=== PATIENT | female | born 1985 | race Caucasian/White ===

== ENCOUNTER 2020-01-22 05:40 | Inpatient (IN) | payer MEDICARE, MEDICAID, SELFPAY ==
[2020-01-22] VITALS (54 sets, daily range): BP systolic 98–132; BP diastolic 44–94; PULSE 50–147; RESP 14–18; TEMP 36.1–37.4; O2SAT 95–100; BMI 46.7
[2020-01-22] MEDS: LACTATED RINGERS 1,000 ML 999 ML IV CONT (06:45)
--- NOTE | 2020-01-22 06:52 | LDADM ---
This patient, Tata Sanchez, was admitted to Labor/Delivery/Recovery 120 on 01/22/20 at 05:40. Plans for labor, pain management and were discussed with patient. Patient/family oriented to hospital policies and general routines including ID bracelet, bed and alarms, visiting hours, pain management, procedures, bathroom and other care routines, personal items, smoking policy, room service/diet and guest tray routines, security routines, and visiting hours. Patient/Family are encouraged to report perceived risks to care and to ask questions if they do not understand what they are told or what they should do. See OBIX for further documentation.
[2020-01-22 07:01] LABS: Basophils Percent Auto 0.3 % (0.2-1.2); Eosinophils Absolute Auto 0.2 K/mm3 (0-0.3); Eosinophils Percent Auto 1.5 % (0-4.4); Hematocrit 34.6 % (37.0-47.0); Hemoglobin 11.7 g/dL (12.0-15.0); Immature Granulocyte Absolute 0.14 K/mm3 (0.00-0.031); Immature Granulocyte Percent A 1.2 % (0-0.5); Lymphocytes Absolute Auto 2.33 K/mm3 (0.9-3.2); Lymphocytes Percent Auto 20.5 % (18.3-44.2); Mean Corpuscular HGB Conc 33.8 g/dl (32-36); Mean Corpuscular Hemoglobin 33.2 pg (26-34); Mean Corpuscular Volume 98.3 fl (80-100); Mean Platelet Volume 12.4 fl (7.4-10.4); Monocytes Absolute Auto 0.8 K/mm3 (0.1-0.6); Neutrophils Absolute Auto 7.9 K/mm3 (1.3-6.7); Neutrophils Percent Auto 69.5 % (45.5-73.1); Platelet Count Result 163 k/mm3 (150-375); Red Blood Count 3.52 M/mm3 (4.2-5.4); Red Cell Distribution Width 13.4 % (11.5-14.5); White Blood Count 11.4 K/mm3 (4.5-10.0)
--- NOTE | 2020-01-22 07:14 | WPDANESEPPF ---
Anes - Initial Pre Proc Eval Date/Time: 01/22/20 07:14 Surgeon: Pietro Mar MD Pre Op Diagnosis: Patient Data Age: 34 Gender: F Height: 1.57 m Weight: 116 kg Last Vital Signs Pulse 82 01/22/20 06:10 BP 132/74 01/22/20 06:10 Pulse Ox 98 01/22/20 06:24 Allergies Allergy/AdvReac Type Severity Reaction Status Date / Time No Known Allergies Allergy Unverified 03/26/17 14:59 Laboratory Tests 01/22/20 01/22/20 06:46 06:46 WBC 11.4 K/mm3 H K/mm3 (4.5-10.0) RBC 3.52 M/mm3 L M/mm3 (4.2-5.4) Hgb 11.7 g/dL L g/dL (12.0-15.0) Hct 34.6 % L % (37.0-47.0) MCV 98.3 fl fl (80-100) MCH 33.2 pg pg (26-34) MCHC 33.8 g/dl g/dl (32-36) RDW 13.4 % % (11.5-14.5) Plt Count 163 k/mm3 k/mm3 (150-375) MPV 12.4 fl H fl (7.4-10.4) Immature Gran % (Auto) 1.2 % H % (0-0.5) Neut % (Auto) 69.5 % % (45.5-73.1) Lymph % (Auto) 20.5 % % (18.3-44.2) [place] % (Auto) 7.0 % % (2.6-8.5) Eos % (Auto) 1.5 % % (0-4.4) Baso % (Auto) 0.3 % % (0.2-1.2) Lymph # (Auto) 2.33 K/mm3 K/mm3 (0.9-3.2) [place] # (Auto) 0.8 K/mm3 H K/mm3 (0.1-0.6) Eos # (Auto) 0.2 K/mm3 K/mm3 (0-0.3) Baso # (Auto) 0.0 K/mm3 K/mm3 (0.0-0.1) Abs Immat Gran (auto) 0.14 K/mm3 H K/mm3 (0.00-0.031) Absolute Neuts (auto) 7.9 K/mm3 H K/mm3 (1.3-6.7) Absolute Nucleated RBC 0.0 K/mm3 K/mm3 (0.0-0.012) Nucleated RBC % 0.0 % % (0.0-0.2) RPR Pending Patient hx anesthesia problems: none Family hx anesthesia problems: none [facility] Past Medical History Medical History (Updated 01/22/20 @ 07:15 by Axel Chicas MD) Morbid obesity with BMI of 40.0-44.9, adult Social History Social History Substance use: unknown Gender identity (if verbalized by the patient): Female Spiritual care concerns: No Anes - Eval Final PreProcedure Day of Procedure 01/22/20 07:14 Patient weight: morbidly obese Heart: regular rate and rhythm Lungs: clear to auscultation and normal air movement Airway: Mallampati scale class II Neurological: alert and oriented Last oral intake: >/= 8 hours ASA classification: III Emergent: no Anesthetic plan: proceed Anesthesia type and monitoring: regional spinal Informed Consent: The patient's anesthetic plan and its attendant risks and benefits were discussed with the patient/family/POA. Questions were solicited and answers provided to the satisfaction of the patient/family/POA.
--- NOTE | 2020-01-22 07:22 | PM.IMHP ---
H&P: HPI History of Present Illness Chief complaint: Narrative: Tata Sanchez is a 34 year old female 003 presents for repeat delivery and tubal ligation. care has been with Dr. Dent but due to [facility] being closed she presents for delivery here at [place]. records are on the chart and Uncomplicated and no issues. Review of Systems Review of Systems: All systems reviewed & are unremarkable except as noted in HPI and below PMFSH Past Medical History Medical History (Updated 01/22/20 @ 07:24 by Pietro Mar MD) Morbid obesity with BMI of 40.0-44.9, adult Social History Social History Smoking packs per day: 0.5 Smoking cigarettes per day: 10.0 Years smoked: 10 Smoking pack-years: 5.00 Smoking status: Current every day smoker Tobacco type: cigarettes Second hand tobacco smoke exposure: Yes Substance use: unknown Gender identity (if verbalized by the patient): Female Spiritual care concerns: No Meds Home Medications and Allergies Allergies Allergy/AdvReac Type Severity Reaction Status Date / Time No Known Allergies Allergy Unverified 03/26/17 14:59 Vital Signs Vital Signs - 24 hr 01/22/20 06:10 01/22/20 06:14 01/22/20 06:19 Pulse Rate 82 Blood Pressure 132/74 Pulse Oximetry 97 97 01/22/20 06:24 Pulse Rate Blood Pressure Pulse Oximetry 98 Exam Const: General: no acute distress Resp: Auscultation: clear to auscultation bilaterally Cardio: Rate: regular rate Rhythm: regular rhythm GI: Other: FH 40cm/FHT 140 H&P: Results Labs Labs: Short CBC 01/22/20 Range/Units 06:46 WBC 11.4 H (4.5-10.0) K/mm3 Hgb 11.7 L (12.0-15.0) g/dL Hct 34.6 L (37.0-47.0) % Plt Count 163 (150-375) k/mm3 Assessment and Plan Assessment and plan (1) Term : Code(s): Z34.90 - Encounter for supervision of normal , unspecified, unspecified trimester Status: Acute (2) Encounter for female sterilization procedure: Code(s): Z30.2 - Encounter for sterilization Status: Acute Additional Plan Proceed with repeat as well as bilateral tubal ligation.
--- NOTE | 2020-01-22 08:40 | PM.OBPRVD ---
OB - Delivery Note Procedure Procedure: Procedures Operation Date: 01/22/20 07:30 Actual Procedures Side Surgeon p Section with tubal ligation Bilateral Pietro Mar MD Route of delivery: (with BTL) Specimen: Yes Estimated blood loss (mL): 600 Anesthesia type: Spinal Disposition: PACU Narrative: Patient prepped and draped in the usual sterile manner for this procedure. Pfannenstiel incision was made in was then carried down into the subcutaneous tissue. Fascia was identified and extended bilaterally the length of the skin incision. Hernia sac was noted at this time. Peritoneum was entered bladder flap was developed and uterus scored with clear fluid noted. Vertex was delivered without difficulty section naso-oropharynx the rest phase liver cord clamped cut baby was passed off to the pediatric nurse in attendance. Placenta was manually removed cleared of membranes and clots and the uterine incision was approximated using 0 Monocryl in a running interlocking manner with good approximation hemostasis noted. Bilaterally tubes were grasped with Cameron clamps and not of tissue was removed without difficulty. The left tube was bleeding minimally and [id number] chromic suture rendered this hemostatic. Uterus returned to the abdomen and the tubes were noted be hemostatic and intact. All subfascial tissue was hemostatic and the fascia was approximated using a 0 Vicryl from the left angle to the midline and the right angle to midline. Subcutaneous tissue was approximated and skin was approximated using wide anupama. Patient sent to recovery room stable condition. [place] Baby Weeks of gestation at delivery: 39 Infant gender: Female Weight (pounds): 7 Weight (ounces): 8 presentation: vertex score one minute: 9 score five minutes: 9
[2020-01-22 09:42] LABS: Rapid Plasma Reagin Non-Reactive (NonReactive)
[2020-01-22] MEDS: KETOROLAC 30 MG/ML VIAL (*BKC) IV PUSH (12:05)
[2020-01-22] MEDS: DEXTROSE 5%/0.45% SOD CHL 1,000 ML 125 ML IV CONT (13:58)
[2020-01-22] MEDS: DOCUSATE SODIUM 100 MG CAPSULE PO (16:16)
--- NOTE | 2020-01-22 17:29 | PC.NURSE ---
This patient, Tata Sanchez, was received from Labor&Delivery on 01/22/20 at 1114. Personal belongings list checked and signed. Patient/family oriented to unit policies and routines
[2020-01-22] MEDS: IBUPROFEN 600 MG TABLET PO (20:12)
[2020-01-22] MEDS: SIMETHICONE 80 MG TAB.CHEW PO (20:12)
[2020-01-22] MEDS: ZOLPIDEM TARTRATE 5 MG TABLET PO (21:50)
[2020-01-23] MEDS: IBUPROFEN 600 MG TABLET PO ×4 (02:38→22:57)
[2020-01-23 05:49] VITALS: BP 139/84; PULSE 95; RESP 18; TEMP 36.9; O2SAT 99
[2020-01-23 06:08] LABS: Basophils Percent Auto 0.1 % (0.2-1.2); Eosinophils Absolute Auto 0.1 K/mm3 (0-0.3); Eosinophils Percent Auto 0.8 % (0-4.4); Hematocrit 31.3 % (37.0-47.0); Hemoglobin 10.5 g/dL (12.0-15.0); Immature Granulocyte Absolute 0.12 K/mm3 (0.00-0.031); Immature Granulocyte Percent A 0.8 % (0-0.5); Lymphocytes Absolute Auto 1.49 K/mm3 (0.9-3.2); Lymphocytes Percent Auto 10.5 % (18.3-44.2); Mean Corpuscular HGB Conc 33.5 g/dl (32-36); Mean Corpuscular Hemoglobin 32.9 pg (26-34); Mean Corpuscular Volume 98.1 fl (80-100); Monocytes Percent Auto 7.3 % (2.6-8.5); Neutrophils Absolute Auto 11.4 K/mm3 (1.3-6.7); Neutrophils Percent Auto 80.5 % (45.5-73.1); Platelet Count Result 144 k/mm3 (150-375); Red Blood Count 3.19 M/mm3 (4.2-5.4); Red Cell Distribution Width 13.2 % (11.5-14.5); White Blood Count 14.2 K/mm3 (4.5-10.0)
--- NOTE | 2020-01-23 06:30 | PC.NURSE ---
PT introductions made and plan of care discussed per post op c section, pain management, bottle feeding, daily care activities. PT verbalized understanding of such care.
--- NOTE | 2020-01-23 06:59 | WPDANLDNPN2 ---
Anes-Prog Note L&D-Neuraxial Date/Time: 01/23/20 06:59 Neuraxial medications: intrathecal PF morphine Opiod-related complaints: none Patient feedback: Patient satisfied with post-operative pain management.
--- NOTE | 2020-01-23 07:00 | WPDANLDPN2 ---
Anes-Prog Note L&D Date/Time: 01/23/20 07:00 Comfortable throughout: section Neuraxial method: spinal Epidural/Spinal procedure site: clean & non-tender Neuro status: Neuro function grossly intact. Cardiovascular status: normal Respiratory status: normal Airway patency: baseline Mental status: baseline Post-Op hydration status: normal Vital Signs: Last Vital Signs Temp 36.9 C 01/23/20 05:49 Pulse 95 01/23/20 05:49 Resp 18 01/23/20 05:49 BP 139/84 01/23/20 05:49 Pulse Ox 99 01/23/20 05:49 I/O: Intake & Output 01/22/20 01/22/20 01/23/20 15:59 23:59 07:59 Intake Total 240 1800 800 Output Total 375 1600 1500 Balance -135 200 -700 Post-procedural complaints: none Patient feedback: Patient satisfied with anesthetic care.
[2020-01-23] MEDS: DOCUSATE SODIUM 100 MG CAPSULE PO ×2 (08:54→16:54)
[2020-01-23] MEDS: SIMETHICONE 80 MG TAB.CHEW PO ×2 (08:54→16:54)
[2020-01-23 09:00] VITALS: BP 114/69; PULSE 76; RESP 18; TEMP 36.8; O2SAT 100
--- NOTE | 2020-01-23 09:35 | PM.OBPNVD ---
OB - PN: Subj Subjective Date/time seen: 01/23/20 09:35 Interval history: 34yo s/p repeat section and BTL on 01/21. Patient comments: no complaints and pain well controlled [place] baby status: doing well feeding status: exclusively bottle feeding Narrative: Doing well, pain is controlled. Itching, but benadryl is helping with that. Tolerating diet without nausea/vomiting. Voiding freely. Passing flatus. Denies fevers, chills, chest pain, SOB, lightheadedness. OB - PN: Obj Data Labs CBC & Chem 7: 01/23/20 05:31 Labs: Laboratory Results - last 24 hr 01/22/20 01/23/20 06:46 05:31 WBC 14.2 H RBC 3.19 L Hgb 10.5 L Hct 31.3 L MCV 98.1 MCH 32.9 MCHC 33.5 RDW 13.2 Plt Count 144 L MPV 12.0 H Immature Gran % (Auto) 0.8 H Neut % (Auto) 80.5 H Lymph % (Auto) 10.5 L [place] % (Auto) 7.3 Eos % (Auto) 0.8 Baso % (Auto) 0.1 L Lymph # (Auto) 1.49 [place] # (Auto) 1.0 H Eos # (Auto) 0.1 Baso # (Auto) 0.0 Abs Immat Gran (auto) 0.12 H Absolute Neuts (auto) 11.4 H Absolute Nucleated RBC 0.0 Nucleated RBC % 0.0 RPR Non-reactive OB - PN A/P Time Spent With Patient Time: Total time spent is greater than 50% in coordination of care (as documented) at patient's floor/unit and/or counseling patient: Review of Systems Review of Systems: All systems reviewed & are unremarkable except as noted in HPI and below Exam Const: General: comfortable, no acute distress, alert and awake; No acute distress Orientation/consciousness: patient oriented x3 Resp: Effort & Inspection: normal respiratory effort Auscultation: clear to auscultation bilaterally, no crackles, no rales, no rhonchi and no wheezes Cardio: Rate: regular rate GI: Other: soft, nontender, nondistended. Dressing in place. Psych: Appearance: grossly normal Mental Status: mental status grossly normal Affect: normal affect Attitude: cooperative Judgement: Good judgement present (Psych)
--- NOTE | 2020-01-23 10:00 | PC.NURSE ---
PT requests permission to go outside for fresh air . PT offered nicotine patch and refused. PT instructed on no smoking policy and also [place] virus policy regarding going outside. PT verbalized understanding of such instructions.
[2020-01-23 20:00] VITALS: BP 116/78; PULSE 89; RESP 16; TEMP 36.1; O2SAT 100
--- NOTE | 2020-01-23 22:21 | PC.NURSE ---
Patient viewed the discharge video Mother & Baby Care, The First Two Weeks . Patient was given the opportunity and encouraged to ask questions. Patient verbalized understanding of information shared and has been given the mother/baby guide for home reference.
[2020-01-23] MEDS: ZOLPIDEM TARTRATE 5 MG TABLET PO (22:57)
[2020-01-24] MEDS: DOCUSATE SODIUM 100 MG CAPSULE PO (06:55)
[2020-01-24] MEDS: SIMETHICONE 80 MG TAB.CHEW PO (06:55)
--- NOTE | 2020-01-24 06:55 | PC.NURSE ---
PT introductions made and plan of care discussed per post op c section, pain management, bottle feeding, daily care activities and pending discharge to home. PT instructed on no smoking policy and [place] virus restrictions. PT verbalized understanding of such care.
[2020-01-24] MEDS: IBUPROFEN 600 MG TABLET PO (06:56)
[2020-01-24 07:55] VITALS: BP 137/68; PULSE 85; RESP 18; TEMP 36.6; O2SAT 99
--- NOTE | 2020-01-24 09:36 | P.DS_ITS ---
DS: Diagnosis Admitting Diagnosis Admitting Diagnosis: Encounter for supervision of normal , unspecified, unspecified trimester Discharge Diagnosis (1) S/P section: Code(s): Z98.891 - History of uterine scar from previous surgery Status: Acute Assessment and Plan: Meeting postop milestones Desires to go home today Ok for DC home today (2) Encounter for female sterilization procedure: Code(s): Z30.2 - Encounter for sterilization Status: Acute (3) Morbid obesity with BMI of 40.0-44.9, adult: Code(s): E66.01 - Morbid (severe) obesity due to excess calories; Z68.41 - Body mass index (BMI) 40.0-44.9, adult Status: Acute OB - DS: Summary Hospital Course Hospital Course: Admitted for scheduled elective repeat section and bilateral tubal ligation. Postop course was uncomplicated and meeting post op milestones. Pain controlled. Ambulating without issues. Passing flatus. Tolerating diet. OB Procedures : None OB Procedures Intrapartum: OB Procedures: : None Peripartum Data Delivery Method: Section Procedures: Procedures Operation Date: 01/22/20 07:30 Actual Procedures Side Surgeon p Section with tubal ligation Bilateral Pietro Mar MD Status at Discharge Functional status at discharge: independent ambulation Overall status at discharge: patient is progressing back to baseline Time Spent with Patient Time attestation: Total time spent providing and/or coordinating discharge services: Exam Const: General: comfortable, no acute distress, alert and awake; No acute distress Orientation/consciousness: patient oriented x3 Resp: Effort & Inspection: normal respiratory effort Auscultation: clear to auscultation bilaterally, no crackles, no rales, no rhonchi and no wheezes Cardio: Rate: regular rate Rhythm: regular rhythm GI: Other: soft, nontender, nondistended. Incision C/D/I. [place] in place. Neuro: General: patient oriented x3 Psych: Appearance: grossly normal Mental Status: mental status grossly normal Affect: normal affect Attitude: cooperative Judgement: Good judgement present (Psych) DS: Data Data Completed and Pending Pending studies at discharge: Pending at discharge 01/22/20 08:14 Surgical [PTH] Routine Surgical [PTH] Routine Discharge Plan Discharge Attending physician on discharge: Pietro Mar Discharging Clinician: William Sanders Patient Disposition: Hospice - Home Activity: as tolerated Diet: regular Stand Alone Forms: General Discharge Information Follow-up/Referrals: Pietro Mar MD [Physician] - Discharge Medications: New hydrocodone-acetaminophen 5-325 mg Tablet 1 tab PO Q3H PRN (Reason: Moderate Pain (4-6)) Qty: 20 RF: 0 docusate sodium 100 mg Capsule 100 mg PO BID Qty: 60 RF: 0 ibuprofen 600 mg Tablet 600 mg PO Q6H PRN (Reason: Cramping) Qty: 90 RF: 0 Date of admission: 01/22/20 05:40 Primary Care Provider: PHYSICIAN,FISHING VESSEL OPERATOR Admitting Provider: Pietro Mar Attending physician on admission: Pietro Mar
--- NOTE | 2020-01-24 11:00 | PC.NURSE ---
PT received discharge instructions per protocol and verbalized understanding of such instructions
--- NOTE | 2020-01-24 11:58 | PC.NURSE ---
PT discharged to home ambulatory accompanied by both and spouse to waiting car. Follow up appts confirmed
== END 2020-01-24 11:58 | disposition home or self-care (01) | DRG 785 ==
LOC: ANHLDR 06:11 → ANHOB2 13:56 → ANHLDR 01-27 08:19 → ANHOB2 01-27 08:19
PROVIDERS: Admitting Provider Obstetrics & Gynecology; Visit Provider Obstetrics & Gynecology
PROC: 10D00Z1 Extraction of Products of Conception, Low, Open Approach (ICD-10-PCS; CPT 59514; principal; 2020-01-22 07:30)
DX: O34.211 Maternal care for low transverse scar from previous cesarean delivery (principal); O99.824 Streptococcus B carrier state complicating childbirth; Z30.2 Encounter for sterilization; Z3A.39 39 weeks gestation of pregnancy; Z37.0 Single live birth; O99.214 Obesity complicating childbirth; E66.01 Morbid (severe) obesity due to excess calories; F17.210 Nicotine dependence, cigarettes, uncomplicated; O99.334 Smoking (tobacco) complicating childbirth
CPT/HCPCS: 36415; 85025; 86592; 86850; 86900; 86901; 88302; A9270; J1200; J1885; J2274; J2590; J3010; J7120

== ENCOUNTER 2020-03-19 20:23 | Emergency (ER) | payer MEDICARE, MEDICAID, SELFPAY ==
--- NOTE | ~2020-03-19 | XR_ITS ---
EXAMINATION: XR shoulder LT min 2V DATE: 03/19/2020 21:10 INDICATION: Analyzed left shoulder pain. TECHNIQUE: AP internally and externally rotated, AP oblique externally rotated and transscapular Y vi ews of the left shoulder were obtained. COMPARISON: None FINDINGS: Mild upper thoracic levoscoliosis. Normal alignment at the left shoulder. No fracture. Glenohumeral joint is normal. Acromioclavicular joint is normal. Soft tissues are unremarkable. IMPRESSION: Mild upper thoracic levoscoliosis. Otherwise unremarkable left shoulder radiographs.. Reviewed, dictated and finalized at location A. IMPRESSION: Mild upper thoracic levoscoliosis. Otherwise unremarkable left shoulder radiogr aphs..
--- NOTE | ~2020-03-19 | CT_ITS ---
EXAMINATION: CT abdomen pelvis w con DATE: 03/19/2020 22:23 INDICATION: Right lower quadrant abdominal pain TECHNIQUE: Computed tomography (CT) of the abdomen and pelvis was performed with 100 cc Omnipaque 350 intravenous contrast. The dose-length product was 1296.68 mGy-cm. Automated exposure control and ite rative reconstruction technique were employed. COMPARISON: None. FINDINGS: Lung bases are unremarkable. No significant pleural or pericardial effusion. Heart size nor mal. No significant vascular abnormality. No lymphadenopathy. There is a far right lateral infraumbilical ventral hernia containing multiple loops of unobstructed small bowel and fluid. There is diastases of the rectus muscles below the umbilicus with bulging of m ultiple loops of small bowel and omental fat. There is stranding deep to the anterior abdominal wall which may represent scarring. No bowel obstruction. There is thickening of the subcutaneous tissues o f the lower anterior abdominal wall with overlying skin thickening, suspicious for cellulitis. There is a 2.3 cm corpus luteal cyst of the left ovary. There degenerative changes of the hips. IMPRESSION: 1. Right lateral infraumbilical ventral hernia containing nonobstructed small bowel and fluid. 2: Stranding of the fat involving the anterior abdominal wall with overlying skin thickening, suspici ous for cellulitis. Correlate clinically. Reviewed, dictated and finalized at location A. IMPRESSION: 1. Right lateral infraumbilical ventral hernia containing nonobstructed small b owel and fluid. 2: Stranding of the fat involving the anterior abdominal wall with overlying sk in thickening, suspicious for cellulitis. Correlate clinically.
[2020-03-19 20:24] VITALS: BP 139/92; PULSE 86; RESP 18; TEMP 36.3; O2SAT 98
--- NOTE | 2020-03-19 21:13 | ED.GENADULT ---
HPI - General Adult General Chief complaint: Unspecified Stated complaint: multiple complaints Time Seen by Provider: 03/19/20 20:41 Source: patient Mode of arrival: ambulatory Limitations: no limitations History of Present Illness HPI narrative: This patient is a 34 year old female who presents for evaluation of right lower abdominal pain. She states she has had a lump to right lower abdomen for 2 months. She was evaluated by her OBGYN 1 month ago and she states he told her if it starts to bother her to get reevaluated. Over the past week , she has had intermittent sharp right lower abdominal pain. She denies nasuea, vomiting, fever, diarrhea or urinary complaints. Patient also is concerned she has having intermittent left shoulder pain with lifting. She denies injury. She has not taken anything for pain. She denies weakness, numbness or tingling. Onset (ago): month(s) Related Data Allergies Allergy/AdvReac Type Severity Reaction Status Date / Time No Known Allergies Allergy Verified 01/22/20 07:43 Review of Systems Review of Systems: All systems reviewed & are unremarkable except as noted in HPI and below Constitutional: Constitutional: Denies chills and Denies fever(s) Gastrointestinal: Gastrointestinal: Reports abdominal pain, Denies constipation, Denies diarrhea, Denies nausea and Denies vomiting Genitourinary: Genitourinary: Denies hematuria, Denies nocturia, Denies dysuria and Denies flank pain Musculoskeletal: Musculoskeletal: Denies back pain and Denies muscle cramps Neurologic: Denies dizziness PMFSH Past Medical History Medical History (Updated 03/20/20 @ 00:00 by Danilo Dabrandy) Morbid obesity with BMI of 40.0-44.9, adult Surgical History Surgical History (Updated 03/19/20 @ 21:17 by Belgica Becerra MD) H/O section Hx of appendectomy Social History Social History Smoking packs per day: 0.5 Smoking cigarettes per day: 10.0 Years smoked: 10 Smoking pack-years: 5.00 Smoking status: Current every day smoker Tobacco type: cigarettes Second hand tobacco smoke exposure: Yes Substance use: unknown Gender identity (if verbalized by the patient): Female Spiritual care concerns: No Exam Narrative: Exam Narrative: GENERAL: Well-appearing, well-nourished, and in no acute distress. obese HEAD: Normocephalic, atraumatic EYES: PERRLA and EOMI, conjunctiva clear without discharge THROAT:Mucous membranes moist, NECK: Supple, without lymphadenopathy or mass RESPIRATORY: No respiratory distress, Airway patent, Respirations non-labored, Clear to auscultation without rales, rhonchi or wheeze HEART: Regular rate and rhythm. No murmur heard. Normal peripheral pulses. ABDOMEN: Soft, right lower, nondistended, normal active bowel sounds. No masses. No rebound or guarding, No organomegaly. no hernia appreciated due to body habitus EXTREMITIES: No edema, normal strength with full range of motion. SKIN: Warm, dry, normal color without rash NEURO: Alert and oriented x3. CN 2-12 grossly intact. No focal deficits. PSYCH: Normal mood and affect. Course Reevaluation(s) Reevaluation #1: I have discussed with patient that she was found to have ventral hernia as cause of her pain. She has not fever, nausea or vomiting. She is stable for discharge. No erythema on abdominal wall to suggest cellulitis. She does have UTI so she will be started on antibiotics. Date: 03/19/20 Time: 23:04 Vital Signs Vital signs: Vital Signs Temperature 97.3 F L 03/19/20 20:24 Pulse Rate 86 03/19/20 20:24 Respiratory Rate 18 03/19/20 20:24 Blood Pressure 139/92 H 03/19/20 20:24 Pulse Oximetry 98 03/19/20 20:24 Temperature 97.3 F L 03/19/20 20:24 Pulse Rate 80 03/19/20 23:20 Respiratory Rate 18 03/19/20 23:20 Blood Pressure 129/70 03/19/20 23:20 Pulse Oximetry 98 03/19/20 23:20 Medical Decision Making Vital Signs Vital Signs: Vital Signs Te
[2020-03-19] MEDS: KETOROLAC 30 MG/ML VIAL (*BKC) IV PUSH (21:17)
[2020-03-19 21:22] LABS: Basophils Percent Auto 0.3 % (0.2-1.2); Eosinophils Absolute Auto 0.2 K/mm3 (0-0.3); Eosinophils Percent Auto 2.2 % (0-4.4); Hematocrit 39.9 % (37.0-47.0); Hemoglobin 13.4 g/dL (12.0-15.0); Immature Granulocyte Absolute 0.02 K/mm3 (0.00-0.031); Immature Granulocyte Percent A 0.2 % (0-0.5); Lymphocytes Absolute Auto 3.03 K/mm3 (0.9-3.2); Lymphocytes Percent Auto 30.7 % (18.3-44.2); Mean Corpuscular HGB Conc 33.6 g/dl (32-36); Mean Corpuscular Hemoglobin 32.5 pg (26-34); Mean Corpuscular Volume 96.8 fl (80-100); Mean Platelet Volume 11.5 fl (7.4-10.4); Monocytes Absolute Auto 0.8 K/mm3 (0.1-0.6); Monocytes Percent Auto 8.1 % (2.6-8.5); Neutrophils Absolute Auto 5.8 K/mm3 (1.3-6.7); Neutrophils Percent Auto 58.5 % (45.5-73.1); Platelet Count Result 281 k/mm3 (150-375); Red Blood Count 4.12 M/mm3 (4.2-5.4); Red Cell Distribution Width 12.8 % (11.5-14.5); White Blood Count 9.9 K/mm3 (4.5-10.0)
[2020-03-19 21:28] LABS: Add Urine Microscopic? YES; Appearance Urine Cloudy (Clear); Bacteria Urine 2+ /hpf; Bilirubin Urine Negative (Negative); Blood Urine Negative (Negative); Color Urine Yellow (Yellow); Glucose Urine UA Negative (Negative); Ketones Urine Negative (Negative); Leukocyte Esterase Ur 3+ LEU/UL (Negative); Mucus Urine Rare /lpf; Nitrate Urine Negative (Negative); Protein Urine 1+ mg/dL (Negative); Specific Grav Ur 1.028 (1.001-1.035); Squamous Epithelial Cell Urine Many /hpf (Few); WBC Urine >75 /hpf
[2020-03-19 21:34] LABS: Alanine Aminotransferase 25 U/L (4-35); Albumin Level 4.3 g/dL (3.5-5.1); Alkaline Phosphatase 86 U/L (38-126); Aspartate Amino Transferase 27 U/L (14-36); Bilirubin,Total 0.2 mg/dL (0.2-1.3); Blood Urea Nitrogen 19 mg/dL (7-17); Carbon Dioxide 29 mmol/L (22-30); Chloride 105 mmol/L (98-107); Estimated CRCL calculation 107 ml/min; Estimated Glomerular Filt Rate > 60; Glucose 98 mg/dL (65-105); Potassium 3.5 mmol/L (3.4-5.0); Sodium 139 mmol/L (137-145)
[2020-03-19 23:20] VITALS: BP 129/70; PULSE 80; RESP 18; O2SAT 98
== END 2020-03-19 23:21 | disposition home or self-care (01) ==
PROVIDERS: Emergency Provider General Practice
DX: K43.9 Ventral hernia without obstruction or gangrene (principal); N39.0 Urinary tract infection, site not specified; M25.512 Pain in left shoulder; E66.01 Morbid (severe) obesity due to excess calories; Z68.41 Body mass index [BMI] 40.0-44.9, adult; F17.210 Nicotine dependence, cigarettes, uncomplicated
CPT/HCPCS: 36415; 73030; 74177; 80053; 81001; 81025; 85025; 87077; 87086; 87088; 87186; 96374; 99284; J1885; Q9967

== ENCOUNTER 2020-10-28 13:08 | Emergency (ER) | payer MEDICARE, MEDICAID, SELFPAY ==
[2020-10-28 13:44] VITALS: BP 121/60; PULSE 90; RESP 20; TEMP 36.6; O2SAT 95
[2020-10-28 16:41] LABS: Basophils Percent Auto 0.3 % (0.2-1.2); Eosinophils Absolute Auto 0.3 K/mm3 (0-0.3); Eosinophils Percent Auto 3.5 % (0-4.4); Hematocrit 36.4 % (37.0-47.0); Hemoglobin 11.9 g/dL (12.0-15.0); Immature Granulocyte Absolute 0.01 K/mm3 (0.00-0.031); Immature Granulocyte Percent A 0.1 % (0-0.5); Lymphocytes Absolute Auto 1.68 K/mm3 (0.9-3.2); Lymphocytes Percent Auto 21.5 % (18.3-44.2); Mean Corpuscular HGB Conc 32.7 g/dl (32-36); Mean Corpuscular Hemoglobin 30.4 pg (26-34); Mean Corpuscular Volume 92.9 fl (80-100); Mean Platelet Volume 11.1 fl (7.4-10.4); Monocytes Absolute Auto 1.3 K/mm3 (0.1-0.6); Monocytes Percent Auto 16.9 % (2.6-8.5); Neutrophils Absolute Auto 4.5 K/mm3 (1.3-6.7); Neutrophils Percent Auto 57.7 % (45.5-73.1); Platelet Count Result 288 k/mm3 (150-375); Red Blood Count 3.92 M/mm3 (4.2-5.4); Red Cell Distribution Width 12.6 % (11.5-14.5); White Blood Count 7.8 K/mm3 (4.5-10.0)
[2020-10-28 16:56] LABS: Anion Gap 5 mmol/L (8-16); Blood Urea Nitrogen 9 mg/dL (7-17); Calcium 9.1 mg/dL (8.4-10.2); Carbon Dioxide 32 mmol/L (22-30); Chloride 100 mmol/L (98-107); Estimated CRCL calculation 88 ml/min; Estimated Glomerular Filt Rate > 60; Glucose 98 mg/dL (65-105); Potassium 3.9 mmol/L (3.4-5.0); Sodium 137 mmol/L (137-145)
[2020-10-28 17:09] LABS: Erythrocyte Sedimentation Rate 100 mm/hr (0-20)
[2020-10-28 17:10] LABS: CRP 21.7 mg/dL (<1.0)
[2020-10-28] MEDS: KETOROLAC 30 MG/ML VIAL (*BKC) IV PUSH (17:32)
[2020-10-28] MEDS: PROCHLORPERAZINE EDISYLATE 10 MG/2 ML VIAL IV PUSH (17:33)
[2020-10-28 17:44] VITALS: BP 123/61; PULSE 89; RESP 19; O2SAT 100
--- NOTE | 2020-10-28 17:44 | PC.NURSE ---
Pt talking on phone and laughing with visitor at this time. Still rating pain 10/10
--- NOTE | 2020-10-28 17:46 | ED.HA ---
HPI - Headache General Chief Complaint: Headache Stated Complaint: one massive headache for 4 days, fever Time Seen by Provider: 10/28/20 15:23 Source: patient Mode of arrival: ambulatory Limitations: no limitations History of Present Illness HPI Narrative: 34-year-old female Hx of asthma and chronic hip pain Complains of a headache for about 4 days Headache is mainly frontal between her eyes but also radiates to both temples into the occiput She had a subjective fever at onset but none today She does not have a runny nose or sore throat, nor a cough There are no focal neurologic symptoms, no visual symptoms Related Data Home Medications Medication Instructions Recorded Confirmed cyclobenzaprine 5 mg tablet 5 mg PO TID PRN 04/06/20 04/06/20 escitalopram oxalate 5 mg tablet 5 mg PO DAILY 04/06/20 04/06/20 trazodone 50 mg tablet 50 mg PO BID 04/06/20 04/06/20 valacyclovir 1 gram tablet 1,000 mg PO DAILY 04/06/20 04/06/20 Allergies Allergy/AdvReac Type Severity Reaction Status Date / Time No Known Allergies Allergy Verified 01/22/20 07:43 Review of Systems Review of Systems: All systems reviewed & are unremarkable except as noted in HPI and below Constitutional: Constitutional: Reports chills, Denies fatigue, Reports fever(s), Denies headache(s) and Denies weakness Eyes: Eyes: Reports no additional eye complaints, Denies change in vision and Denies photophobia ENT: Denies headache(s), Denies epistaxis, Denies nasal congestion and Denies sore throat Cardiovascular: Cardiovascular: Denies chest pain, Denies leg edema, Denies palpitations and Denies dyspnea Respiratory: Respiratory: Denies cough, Denies dyspnea and Denies wheezing Gastrointestinal: Gastrointestinal: Denies abdominal pain, Denies diarrhea, Denies nausea and Denies vomiting Genitourinary: Genitourinary: Denies hematuria, Denies urinary frequency and Denies dysuria Musculoskeletal: Musculoskeletal: Denies myalgias, Denies deformity, Denies arthralgias, Denies joint swelling, Denies muscle weakness and Denies numbness Integumentary/Breasts: Skin/Breast: Denies rash and Denies wounds Neurologic: Denies dizziness, Denies headache(s), Denies focal weakness, Denies numbness and Denies weakness Psychiatric: Psychiatric: Reports no additional psychiatric complaints Endocrine: Endocrine: Denies fatigue and Denies palpitations Hematologic/Lymphatic: Hematologic/Lymphatic: Denies easy bleeding and Denies easy bruising Allergic/Immunologic: Allergic/Immunologic: Denies wheezing PMFSH Past Medical History Medical History (Updated 10/28/20 @ 18:51 by Kwame Cabrera MD) BMI 40.0-44.9, adult Morbid obesity with BMI of 40.0-44.9, adult Surgical History Surgical History H/O section 2013 2015 2016 2019 History of bilateral breast reduction surgery History of hernia surgery History of tonsillectomy Hx of appendectomy Family History Family History Mother Diabetes mellitus Chronic obstructive pulmonary disease Asthma Father History of blood clots Hypertension Mother Diabetes mellitus Social History Social History Smoking packs per day: 1 Smoking cigarettes per day: 20.0 Years smoked: 4 Smoking pack-years: 4.00 Smoking status: Current every day smoker Tobacco type: cigarettes Second hand tobacco smoke exposure: Yes Alcohol intake: current Substance use: unknown Gender identity (if verbalized by the patient): Female Spiritual care concerns: No Exam Const: General: no acute distress, well developed, alert and awake Nutritional Appearance: well nourished Orientation/consciousness: patient oriented x3 (alert) Limitations: no limitations HENMT: Head: normal to inspection, normocephalic and atraumatic Ears: external ears n
[2020-10-28 18:46] VITALS: BP 135/76; PULSE 65; RESP 18; O2SAT 100
[2020-10-29 13:28] LABS: SARS-CoV-2 RNA PCR Negative
== END 2020-10-28 19:19 | disposition home or self-care (01) ==
PROVIDERS: Emergency Provider Emergency Medicine; PCP Family Medicine
DX: R51.9 Headache, unspecified (principal); J34.89 Other specified disorders of nose and nasal sinuses; Z20.822 Contact with and (suspected) exposure to COVID-19; E66.01 Morbid (severe) obesity due to excess calories; Z68.41 Body mass index [BMI] 40.0-44.9, adult; F17.210 Nicotine dependence, cigarettes, uncomplicated
CPT/HCPCS: 36415; 80048; 85025; 85652; 86140; 87804; 96374; 96375; 99284; C9803; J0780; J1885; U0003; U0005

== ENCOUNTER 2021-10-17 10:36 | Emergency (ER) | payer OTHER, SELFPAY ==
--- NOTE | ~2021-10-17 | XR_ITS ---
XR chest 1V portable DATE: 10/17/2021 13:12 INDICATION: Cough TECHNIQUE: Portable AP chest on 10/17/2021 at 1258 hours COMPARISON: None FINDINGS: There are patchy bilateral infiltrates involving primarily the mid and lower lung zones, young ggesting bilateral pneumonia, very possibly Covid related. Normal heart size. No pleural effusion or pneumothorax. There is levoscoliosis of the upper thoracic spine. IMPRESSION: Patchy bilateral pulmonary infiltrates suggesting Covid pneumonia Reviewed, dictated and finalized at location [facility]. [employer]
[2021-10-17 11:21] VITALS: BP 140/88; PULSE 81; RESP 18; TEMP 36.3; O2SAT 100
[2021-10-17 12:50] VITALS: BP 129/87; PULSE 80; RESP 16; TEMP 36.8; O2SAT 98
[2021-10-17 12:55] VITALS: O2SAT 100
== END 2021-10-17 13:44 | disposition left against medical advice (07) ==
PROVIDERS: Emergency Provider Emergency Medicine; PCP Family Medicine
DX: R05.9 Cough, unspecified (principal)
CPT/HCPCS: 71045; 99199

== ENCOUNTER 2022-11-15 17:20 | Emergency (ER) | payer MEDICARE, MEDICAID, SELFPAY ==
[2022-11-15 17:23] VITALS: BP 133/90; PULSE 84; RESP 17; TEMP 36.4; O2SAT 99
--- NOTE | 2022-11-15 19:51 | PC.NURSE ---
Triage note reviewed and confirmed. Pt c/o R side dental pain. States pain radiates to R ear. States having dental issues and havent been able to see a dentist yet. a&ox4, NAD.
[2022-11-15 20:07] VITALS: BP 131/64; PULSE 81; RESP 18; TEMP 37.2; O2SAT 99
--- NOTE | 2022-11-15 21:06 | ED.DENTAL ---
HPI - Dental/Oral General Chief complaint: Dental/Oral Stated complaint: right sided dental pain since Saturday Time Seen by Provider: 11/15/22 19:53 History of Present Illness HPI Narrative: Patient is a 36-year-old female presenting with dental pain. Patient states that for the last 4 days she has had persistent dental pain in the right side of her mouth especially in her lower teeth. States that she has multiple cracked teeth and she suspects the pain is related to these. States that she has tried to get in with a dentist but she has been unable to do so. States that she took some Tylenol this morning with some relief. She denies any intraoral swelling, difficulty swallowing or breathing, fevers or chills. Denies further complaints. Related Data Home Medications Medication Instructions Recorded Confirmed cyclobenzaprine 5 mg tablet 5 mg PO TID PRN 04/06/20 04/06/20 escitalopram oxalate 5 mg tablet 5 mg PO DAILY 04/06/20 04/06/20 trazodone 50 mg tablet 50 mg PO BID 04/06/20 04/06/20 valacyclovir 1 gram tablet 1,000 mg PO DAILY 04/06/20 04/06/20 Allergies Allergy/AdvReac Type Severity Reaction Status Date / Time No Known Allergies Allergy Verified 11/15/22 17:21 Review of Systems Review of Systems: All systems reviewed & are unremarkable except as noted in HPI and below PMFSH Past Medical History Medical History (Updated 11/15/22 @ 21:10 by Ellyn Pierce MD) BMI 40.0-44.9, adult Morbid obesity with BMI of 40.0-44.9, adult Surgical History Surgical History H/O section 2013 2015 2016 2019 History of bilateral breast reduction surgery History of hernia surgery History of tonsillectomy Hx of appendectomy Family History Family History Mother Diabetes mellitus Chronic obstructive pulmonary disease Asthma Father History of blood clots Hypertension Mother Diabetes mellitus Social History Social History Smoking packs per day: 1 Smoking cigarettes per day: 20.0 Years smoked: 4 Smoking pack-years: 4.00 Smoking status: Current every day smoker Tobacco type: cigarettes Second hand tobacco smoke exposure: Yes Alcohol intake: current Substance use: unknown Living arrangements: with family Gender identity (if verbalized by the patient): Female Spiritual care concerns: No Exam Narrative: GENERAL: Well-appearing, well-nourished, and in no acute distress. HEAD: Normocephalic, atraumatic. EYES: PERRLA and EOMI. ENT: Poor dentition throughout but there are multiple cracked teeth affecting her right lower molars, numerous caries; no dental abscesses, no drainage NECK: Supple. CHEST: No respiratory distress. HEART: Regular rate and rhythm. ABDOMEN: Soft, nondistended EXTREMITIES: Normal range of motion. No edema. SKIN: Warm, dry, no rash. NEURO: No focal deficits. Alert and oriented x3. PSYCH: Normal mood and affect. Course Vital Signs Vital signs: Vital Signs Temperature 97.6 F 11/15/22 17:23 Pulse Rate 84 11/15/22 17:23 Respiratory Rate 17 11/15/22 17:23 Blood Pressure 133/90 11/15/22 17:23 Pulse Oximetry 99 11/15/22 17:23 Oxygen Delivery Room Air 11/15/22 17:23 Temperature 98.9 F 11/15/22 20:07 Pulse Rate 81 11/15/22 20:07 Respiratory Rate 18 11/15/22 20:07 Blood Pressure 131/64 11/15/22 20:07 Pulse Oximetry 99 11/15/22 20:07 Oxygen Delivery Room Air 11/15/22 17:23 MDM - Dental/Oral MDM Narrative Medical decision making narrative: Patient is a 36-year-old female presenting with several days of right-sided dental pain. States that she has been unable to get into the dentist this week. Exam is remarkable for poor dentition with numerous dental caries. No evidence of abscess or spreading infection. Advised Tylenol and ibuprofen
[2022-11-15] MEDS: IBUPROFEN 400 MG TABLET 800 MG PO (21:20)
[2022-11-15] MEDS: PENICILLIN V POTASSIUM 250 MG TABLET 500 MG PO (21:20)
[2022-11-15 21:34] VITALS: BP 118/69; PULSE 89; RESP 18; TEMP 36.6; O2SAT 99
== END 2022-11-15 21:35 | disposition home or self-care (01) ==
PROVIDERS: Emergency Provider Emergency Medicine; PCP Family Medicine
DX: K02.9 Dental caries, unspecified (principal); E66.01 Morbid (severe) obesity due to excess calories; Z68.42 Body mass index [BMI] 45.0-49.9, adult; F17.210 Nicotine dependence, cigarettes, uncomplicated
CPT/HCPCS: 99283; A9270